=== PATIENT | female | born 1975 | race Hispanic/Latino ===

== ENCOUNTER 2018-07-31 18:59 | Inpatient (IN) | payer BC | END 2018-08-03 12:09 | disposition home or self-care (01) | LOC: EDH 18:59 → EDHIP 21:25 → 4BH 23:09 | DX: J81.0 Acute pulmonary edema (principal); N39.0 Urinary tract infection, site not specified; J81.1 Chronic pulmonary edema; E87.6 Hypokalemia; E83.42 Hypomagnesemia; Z68.38 Body mass index [BMI] 38.0-38.9, adult; E66.9 Obesity, unspecified ==